=== PATIENT | female | born 1950 | race Caucasian/White ===

== ENCOUNTER 2018-05-08 14:46 | Outpatient (CLI) | payer MEDICARE, OTHER | END 2018-05-08 14:47 | disposition home or self-care (01) | LOC: BICMAMMO 14:46 | PROVIDERS: ATTEND Family Medicine | DX: Z12.31 Encounter for screening mammogram for malignant neoplasm of breast (principal); Z13.820 Encounter for screening for osteoporosis; M85.88 Other specified disorders of bone density and structure, other site | CPT/HCPCS: 77063; 77067; 77080 ==

== ENCOUNTER 2019-05-28 09:46 | Outpatient (CLI) | payer MEDICARE ==
--- NOTE | 2019-05-28 10:57 | MMO ---
Bilateral MAMMO Bilat Screen [facility]. CLINICAL HISTORY: Patient is 68 years old and is seen for screening. The patient has the following family history of breast cancer: cousin female, malignant (generic), OVARIAN. The patient has no personal history of cancer. VIEWS: The views performed were: bilateral craniocaudal with tomosynthesis and bilateral mediolateral oblique with tomosynthesis. FILMS COMPARED: The present examination has been compared to a prior imaging study performed at [facility] on 05/08/2018. MAMMOGRAM FINDINGS: There are scattered fibroglandular densities. There are no suspicious masses, suspicious calcifications, or new areas of architectural distortion. IMPRESSION: THERE IS NO MAMMOGRAPHIC EVIDENCE OF MALIGNANCY. A ROUTINE FOLLOW-UP MAMMOGRAM IN 1 YEAR IS RECOMMENDED. THE RESULTS OF THIS EXAM WERE SENT TO THE PATIENT. ACR BI-RADS Category 1 - Negative MAMMOGRAPHY NOTE: 1. A negative mammogram report should not delay a biopsy if a dominant of clinically suspicious mass is present. 2. Approximately 10% to 15% of breast cancers are not detected by mammography. 3. Adenosis and dense breasts may obscure an underlying neoplasm. Reported by: GREER JACKSON MD Electonically Signed: [id number]
== END 2019-05-28 09:47 | disposition home or self-care (01) ==
LOC: BICMAMMO 09:46
PROVIDERS: ATTEND Family Medicine
DX: Z12.31 Encounter for screening mammogram for malignant neoplasm of breast (principal); Z80.3 Family history of malignant neoplasm of breast
CPT/HCPCS: 77063; 77067

== ENCOUNTER 2021-06-29 12:27 | Outpatient (CLI) | payer MEDICARE, OTHER | END 2021-06-29 12:28 | disposition home or self-care (01) | LOC: BICMAMMO 12:27 | PROVIDERS: ATTEND Nurse Practitioner Adult Health | DX: Z12.31 Encounter for screening mammogram for malignant neoplasm of breast (principal); Z80.3 Family history of malignant neoplasm of breast | CPT/HCPCS: 77063; 77067 ==

== ENCOUNTER 2022-07-19 12:53 | Outpatient (CLI) | payer MEDICARE ==
[2022-07-19] MEDS ORDERED: Iopamidol 370 76% 100 ML VIAL ONE (14:11)
== END 2022-07-19 12:54 | disposition home or self-care (01) ==
LOC: BICCT 12:53
PROVIDERS: ATTEND Urology
DX: N36.8 Other specified disorders of urethra (principal); R33.9 Retention of urine, unspecified; N95.2 Postmenopausal atrophic vaginitis; N20.0 Calculus of kidney; Z83.3 Family history of diabetes mellitus
CPT/HCPCS: 74178; Q9967

== ENCOUNTER 2022-08-17 11:30 | Outpatient (CLI) | payer MEDICARE, OTHER ==
[2022-08-17 13:30] LABS: INR-International Normal Ratio 0.9; PTT 24.9 sec (22.0-33.0); Prothrombin Time 10.2 sec (9.5-12.1)
[2022-08-17 13:32] LABS: Anion Gap 14 mmol/L (10-20); BUN (Urea Nitrogen) 15 mg/dL (9.8-20.1); Calc. Creatinine Clearance 0 mL/min (70-130); Calcium 10.5 mg/dL (7.8-10.44); Carbon Dioxide 27 mmol/L (23-31); Chloride 105 mmol/L (98-107); Estimated GFR 74; Glucose 89 mg/dL (83-110); Potassium 4.1 mmol/L (3.5-5.1); Sodium 142 mmol/L (136-145)
[2022-08-17 13:35] LABS: Hemoglobin 13.5 g/dL (12.0-15.5); Mean Corpuscular HGB CONC 33.3 g/dL (32.0-36.0); Mean Corpuscular Hemoglobin 29.7 pg (27.0-33.0); Mean Platelet Volume 10.8 fl (7.4-10.4); Platelet Count 193 10x3/uL (150-450); RBC Distribution Width 12.6 % (11.5-14.5); Red Blood Cell (RBC) Count 4.55 10x6/uL (3.90-5.03)
== END 2022-08-17 11:31 | disposition home or self-care (01) ==
LOC: LABBT 11:30
PROVIDERS: ATTEND Urology
DX: Z01.818 Encounter for other preprocedural examination (principal); N20.0 Calculus of kidney; N28.1 Cyst of kidney, acquired; N95.2 Postmenopausal atrophic vaginitis; N81.0 Urethrocele; N31.2 Flaccid neuropathic bladder, not elsewhere classified; R33.9 Retention of urine, unspecified; Z83.3 Family history of diabetes mellitus
CPT/HCPCS: 80048; 81001; 85027; 85610; 85730; 87077; 87086; 87186; 93005; 93010

== ENCOUNTER 2022-08-31 05:50 | Day surgery (SDC) | payer MEDICARE ==
[2022-08-30 14:14] VITALS: BMI 23.3
[2022-08-31] MEDS ORDERED: fentaNYL PF 100 MCG/2 ML SYRINGE ONE (06:34)
[2022-08-31] MEDS ORDERED: Famotidine/PF 20 mg/2ml Vial ONE (06:35)
[2022-08-31] MEDS ORDERED: Ondansetron PF 4 MG/2 ML Vial ONE ×2 (06:35→07:35)
[2022-08-31] MEDS ORDERED: Metoclopramide HCl 10 MG/2 ML VIAL ONE ×2 (06:35→07:35)
[2022-08-31] MEDS ORDERED: Phenylephrine 10 MG/ML VIAL ONE (06:35)
[2022-08-31] MEDS ORDERED: Iopamidol 30 ML ONE (07:22)
[2022-08-31] MEDS ORDERED: Levofloxacin 500 mg/D5W 100 ml Premix Bag ONE (07:24)
[2022-08-31] MEDS ORDERED: PROPOFOL 200 MG/20 ML VIAL ONE (07:35)
[2022-08-31] MEDS ORDERED: Rocuronium Bromide 10 MG/ML (10ML VIAL) ONE (07:35)
[2022-08-31] MEDS ORDERED: NEOSTIGMINE 3 MG/3 ML SYR 3 MG/3 ML SYRINGE ONE (07:35)
[2022-08-31] MEDS ORDERED: Ketorolac Tromethamine 30 MG/ML VIAL ONE (07:35)
[2022-08-31] MEDS ORDERED: Glycopyrrolate 0.2 MG/ML 5 ML SYRINGE ONE (07:35)
[2022-08-31] MEDS ORDERED: PHENYLEPHRINE-NS 100 MCG/ML 10 ML SYRINGE ONE (07:35)
[2022-08-31] MEDS ORDERED: Dexamethasone 20 MG/5 ML VIAL ONE (07:35)
[2022-08-31] MEDS ORDERED: Oxybutynin 5 MG TAB ONE (08:36)
[2022-08-31] MEDS ORDERED: Phenazopyridine HCl 100 MG TAB ONE (08:36)
== END 2022-08-31 10:58 | disposition home or self-care (01) ==
LOC: SDC 05:50
PROVIDERS: ATTEND Urology
PROC: 0TC48ZZ Extirpation of Matter from Left Kidney Pelvis, Via Natural or Artificial Opening Endoscopic (ICD-10-PCS; principal; 2022-08-31)
PROC: 0T778DZ Dilation of Left Ureter with Intraluminal Device, Via Natural or Artificial Opening Endoscopic (ICD-10-PCS; 2022-08-31)
DX: N20.0 Calculus of kidney (principal); N31.2 Flaccid neuropathic bladder, not elsewhere classified; N28.1 Cyst of kidney, acquired; R33.9 Retention of urine, unspecified; N36.8 Other specified disorders of urethra; N95.2 Postmenopausal atrophic vaginitis; M19.041 Primary osteoarthritis, right hand; M19.042 Primary osteoarthritis, left hand; K21.9 Gastro-esophageal reflux disease without esophagitis; Z79.899 Other long term (current) drug therapy; Z88.1 Allergy status to other antibiotic agents; Z88.8 Allergy status to other drugs, medicaments and biological substances
CPT/HCPCS: 74018; 74420; 82365; 88300; C1769; C2617; J1100; J1885; J1956; J2370; J2405; J2704; J2765; Q9967; S0028

== ENCOUNTER 2023-06-27 13:02 | Outpatient (CLI) | payer MEDICARE, OTHER | END 2023-06-27 13:03 | disposition home or self-care (01) | LOC: BICRAD 13:02 | PROVIDERS: ATTEND Urology | DX: N20.0 Calculus of kidney (principal) | CPT/HCPCS: 36415; 74018; 80048 ==

== ENCOUNTER 2023-12-08 12:28 | Outpatient (CLI) | payer MEDICARE | END 2023-12-08 12:29 | disposition home or self-care (01) | LOC: BICRAD 12:28 | PROVIDERS: ATTEND Urology | DX: N20.0 Calculus of kidney (principal); N31.2 Flaccid neuropathic bladder, not elsewhere classified; R33.9 Retention of urine, unspecified | CPT/HCPCS: 36415; 74018; 80048 ==

== ENCOUNTER 2024-11-25 12:05 | Outpatient (CLI) | payer MEDICARE, OTHER | END 2024-11-25 12:06 | disposition home or self-care (01) | LOC: BICULT 12:05 | PROVIDERS: ATTEND Urology | DX: N20.0 Calculus of kidney (principal); N28.1 Cyst of kidney, acquired; N31.2 Flaccid neuropathic bladder, not elsewhere classified; R33.9 Retention of urine, unspecified; N32.89 Other specified disorders of bladder; Z83.3 Family history of diabetes mellitus; Z98.890 Other specified postprocedural states | CPT/HCPCS: 36415; 74018; 76770; 80048; 87389 ==

== ENCOUNTER 2025-08-26 12:54 | Outpatient (CLI) | payer MEDICARE, OTHER | END 2025-08-26 12:55 | disposition home or self-care (01) | LOC: SCSBT 12:54 | PROVIDERS: ATTEND Internal Medicine | DX: Z13.820 Encounter for screening for osteoporosis (principal); M85.89 Other specified disorders of bone density and structure, multiple sites | CPT/HCPCS: 77080 ==